=== PATIENT | male | born 1960 | race Caucasian/White ===

== ENCOUNTER 2016-08-28 11:22 | Inpatient (IN) | payer OTHER ==
[2016-08-28] VITALS (9 sets, daily range): BP systolic 113–130; BP diastolic 64–77; PULSE 67–111; RESP 14–20; TEMP 96–99.2; O2SAT 95–100
[~2016-08-28] VITALS: Ht 172.7 cm; Wt 72.0 kg
[2016-08-28] MEDS ORDERED: DIPHTH/TETANUS/ACEL PERTUSSIS (BOOSTER) 0.5 ML VIAL/PFS IM ONE (11:26)
[2016-08-28] MEDS ORDERED: IOHEXOL 350 MG/ML 10 ML VIAL (for RAD DIAG) IV ONE (11:39)
[2016-08-28 11:43] LABS: I-STAT POTASSIUM 3.8 MMOL/L (3.5-4.9)
[2016-08-28 11:44] LABS: BASOPHIL % 0.3 % (0.0-2.0); EOSINOPHIL # 0.2 TH/MM3 (0-0.4); EOSINOPHIL % 2.6 % (0.0-4.0); HEMO FLAGS DIFF FINAL; LYMPH % 23.4 % (9.0-44.0); LYMPHOCYTE # 1.7 TH/MM3 (1.0-4.8); MEAN CORPUSCULAR HEMOGLOBIN 30.5 PG (27.0-34.0); MEAN CORPUSCULAR HGB CONC 34.7 % (32.0-36.0); MONO % 7.2 % (0.0-8.0); NEUT % 66.5 % (16.0-70.0); PLATELET COUNT 290 TH/MM3 (150-450); RED BLOOD COUNT 4.66 MIL/MM3 (4.50-5.90); RED CELL DISTRIBUTION WIDTH 12.6 % (11.6-17.2); WHITE BLOOD COUNT 7.5 TH/MM3 (4.0-11.0)
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
[2016-08-28 11:55] LABS: APTT (PATIENT) 25.9 SEC (24.3-30.1); PROTHROMBIN TIME - PATIENT 11.4 SEC (9.8-11.6)
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
[2016-08-28] MEDS ORDERED: ASPI81CH CHEW (12:09)
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
[2016-08-28] MEDS ORDERED: MISCELLANEOUS NURSING INFORMATION XX SCH (13:00)
[2016-08-28] MEDS ORDERED: PANTOPRAZOLE SODIUM 40 MG VIAL IVP SCH (13:00)
[2016-08-28] MEDS ORDERED: ENALAPRILAT 1.25 MG/ML VIAL IV PRN (13:00)
[2016-08-28] MEDS ORDERED: SODIUM CHLORIDE 0.9% FLUSH 10 ML FLUSH IV FLUSH PRN ×2 (13:00→14:15)
[2016-08-28] MEDS ORDERED: SODIUM CHLOR 0.9% 1000 ML INJ 1,000 ML IV SCH (13:00)
[2016-08-28] MEDS ORDERED: ONDANSETRON HCL 4 MG/2 ML VIAL IV PRN ×2 (13:00→14:15)
[2016-08-28] MEDS ORDERED: CHLORHEXIDINE GLUCONATE 2 % 1 PACK (2 CLOTHS) TOP PRN (13:00)
[2016-08-28] MEDS: SODIUM CHLOR 0.9% 1000 ML INJ 1,000 ML IV SCH (14:00)
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
[2016-08-28] MEDS ORDERED: MORPHINE SULFATE 4 MG/ML INJ IV PRN (14:15)
[2016-08-28] MEDS ORDERED: oxyCODONE/ACETAMINOPHEN 5 MG/325 MG TAB PO PRN (14:15)
[2016-08-28] MEDS ORDERED: NALOXONE HCL 0.4 MG/ML AMP IV PRN (14:15)
[2016-08-28] MEDS ORDERED: Post-op Orders (for Pharmacy) MISC XX ONE (14:15)
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
[2016-08-28] MEDS ORDERED: PANTOPRAZOLE SOD 40 MG DELAYED RELEASE TAB PO SCH (15:00)
[2016-08-28] MEDS: METHOCARBAMOL 500 MG TAB PO SCH ×2 (16:53→21:23)
[2016-08-28] MEDS: LIDOCAINE HCL 5% PATCH T-DERMAL SCH (16:53)
[2016-08-28] MEDS: SODIUM CHLORIDE 0.9% FLUSH 10 ML FLUSH IV FLUSH SCH (21:00)
[2016-08-28] MEDS: DOCUSATE SODIUM 100 MG CAP PO SCH (21:00)
[2016-08-28] MEDS ORDERED: REMOVE OLD LIDOCAINE PATCH T-DERMAL SCH (21:00)
[2016-08-28] MEDS ORDERED: MAGNESIUM HYDROXIDE SUSP 30 ML CUP PO SCH (21:00)
[2016-08-28] MEDS ORDERED: DOCUSATE SODIUM 100 MG CAP PO SCH (21:00)
[2016-08-29] VITALS: BP 117/65; PULSE 74; RESP 18; TEMP 99.2; O2SAT 96
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
[2016-08-29] MEDS: SODIUM CHLOR 0.9% 1000 ML INJ 1,000 ML IV SCH ×2 (00:32→08:19)
[2016-08-29] MEDS ORDERED: CHLORHEXIDINE GLUCONATE 2 % 1 PACK (2 CLOTHS) TOP SCH (04:00)
[2016-08-29 04:24] VITALS: BP 117/63; PULSE 75; RESP 18; TEMP 99.5; O2SAT 95
[2016-08-29 05:22] LABS: AUTOMATED NEUTROPHIL # 8.2 TH/MM3 (1.8-7.7); BASOPHIL % 0.2 % (0.0-2.0); EOSINOPHIL # 0.1 TH/MM3 (0-0.4); EOSINOPHIL % 1.2 % (0.0-4.0); HEMATOCRIT 39.4 % (39.0-51.0); HEMO FLAGS DIFF FINAL; LYMPHOCYTE # 1.7 TH/MM3 (1.0-4.8); MEAN CELL VOLUME 88.3 FL (80.0-100.0); MEAN CORPUSCULAR HEMOGLOBIN 30.4 PG (27.0-34.0); MEAN CORPUSCULAR HGB CONC 34.4 % (32.0-36.0); MONO % 9.3 % (0.0-8.0); NEUT % 74.3 % (16.0-70.0); PLATELET COUNT 271 TH/MM3 (150-450); RED BLOOD COUNT 4.46 MIL/MM3 (4.50-5.90); RED CELL DISTRIBUTION WIDTH 12.7 % (11.6-17.2); WHITE BLOOD COUNT 11.1 TH/MM3 (4.0-11.0)
[2016-08-29] MEDS: METHOCARBAMOL 500 MG TAB PO SCH (05:30)
[2016-08-29 05:42] LABS: ALT (GPT) 21 U/L (12-78); ANION GAP 9 MEQ/L (5-15); AST (GOT) 27 U/L (15-37); BICARBONATE 27.8 MEQ/L (21.0-32.0); BLOOD UREA NITROGEN 12 MG/DL (7-18); CHLORIDE 106 MEQ/L (98-107); GLOMERULAR FILTRATION RATE 80 ML/MIN (>89); POTASSIUM 3.6 MEQ/L (3.5-5.1); SODIUM (NA) 143 MEQ/L (136-145)
[2016-08-29 05:45] LABS: ALKALINE PHOSPHATASE 51 U/L (45-117)
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
[2016-08-29 07:15] VITALS: TEMP 98.4
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
[2016-08-29 08:00] VITALS: BP 107/65; PULSE 64; RESP 18; TEMP 98.9; O2SAT 97
[2016-08-29] MEDS: SODIUM CHLORIDE 0.9% FLUSH 10 ML FLUSH IV FLUSH SCH (08:14)
[2016-08-29] MEDS: LIDOCAINE HCL 5% PATCH T-DERMAL SCH (08:19)
[2016-08-29] MEDS: DOCUSATE SODIUM 100 MG CAP PO SCH (08:20)
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
[2016-08-29] MEDS ORDERED: DOCU1CAP39 PO (11:01)
[2016-08-29] MEDS ORDERED: MAGN400S PO (11:01)
[2016-08-29] MEDS ORDERED: OXYC1TAB63 PO (11:02)
[2016-08-29 12:00] VITALS: BP 114/72; PULSE 62; RESP 18; TEMP 97.5; O2SAT 98
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
== END 2016-08-29 13:07 | disposition home or self-care (01) | DRG 184 ==
LOC: NEPI 11:22 → EDBD 12:13 → NEDA 12:13 → N03A 13:35 → N07B 17:28
PROVIDERS: ADMIT Surgery; ATTEND Surgery
DX: S22.43XA Multiple fractures of ribs, bilateral, initial encounter for closed fracture (principal); S02.631A Fracture of coronoid process of right mandible, initial encounter for closed fracture; V97.29XA Other parachutist accident, initial encounter; Y93.39 Activity, other involving climbing, rappelling and jumping off
CPT/HCPCS: 70450; 70486; 71010; 71260; 72125; 72128; 72131; 72170; 74177; 80053; 82435; 82565; 82947; 84132; 84295; 84520; 85025; 85610; 85730; 86850; 86900; 86901; 87641; 90471; 90715; 94150; 94640; 94667; 94668; 96360; 99291; A0431-QM-SH; A0436-QM-SH; G0390; J2405; J7030; Q9967